=== PATIENT | female | born 1955 | race Caucasian/White ===

== ENCOUNTER 2017-03-12 08:16 | Emergency (ER) | payer OTHER ==
[~2017-03-12] VITALS: Ht 162.6 cm; Wt 69.0 kg
[2017-03-12 08:19] VITALS: Ht 162.6 cm; Wt 69.0 kg
[2017-03-12] MEDS ORDERED: CEPH-443 PO (08:34)
[2017-03-12] MEDS ORDERED: SULF1TAB31 PO (08:34)
--- NOTE | 2017-03-12 08:43 | ERD ---
ER Documentation Chief Complaint Date/Time DATE: 03/12/17 TIME: 08:40 Chief Complaint abcess on back x 2 weeks HPI 62-year-old female otherwise healthy comes emergency department with an abscess on the upper back for the past 2 years. Patient reports that she is achy pain is localized, and and she tried to drain it and got some return but it still is continuing to be fluctuant. She has not had any fevers or chills. ROS All systems reviewed and are negative except as per history of present illness. Medications Home Meds Active Scripts Sulfamethoxazole/Trimethoprim* (Bactrim Ds* Tablet) 1 Each Tablet, 1 TAB PO BID , #14 TAB Prov:LUCIANA GUTIERREZ PA-C 03/12/17 Cephalexin* (Keflex*) 500 Mg Capsule, 500 MG PO QID for 7 Days, CAP Prov:LUCIANA GUTIERREZ PA-C 03/12/17 Allergies Allergies: Coded Allergies: No Known Allergy (Unverified , 03/12/17) PMhx/Soc Hx Alcohol Use: No Hx Substance Use: No Hx Tobacco Use: No Smoking Status: Never smoker Physical Exam Vitals Vital Signs Date Time Temp Pulse Resp B/P Pulse Ox O2 Delivery O2 Flow Rate FiO2 03/12/17 08:19 97.8 62 18 129/70 99 Physical Exam General: Well-developed, well-nourished. The patient appears in no acute distress. HEENT: Head is normocephalic, atraumatic. No scleral icterus. Neck: Supple. Nontender. Lungs: Clear to auscultation. Normal air movement. Heart: Regular rate and rhythm. S1 and S2 are normal. No murmurs, gallops, or rubs. Abdomen: Nondistended. Extremities: No clubbing or cyanosis. Moving extremities x 4. No weakness. Neurologic: Alert and oriented 3. No focal deficits. Normal speech and gait. Skin: 3 cm area of fluctuance on the upper back, skin is otherwise dry and intact. There is no surrounding cellulitis or erythema. Results 24 hrs Current Medications Medications (Trade) Dose Ordered Sig/Tevin Route PRN Reason Start Time Stop Time Status Last Admin Dose Admin Lidocaine (Xylocaine 1% (Mdv) 20 ml) 20 ml ONCE ONCE SC 03/12/17 09:00 03/12/17 09:01 Procedures/MDM ED course: Abscess Incision and Drainage with irrigation by me: Patient was verbally consented Location: Upper back Anesthesia: Local 1% Lidocaine Technique: Irrigated. Disrupted loculations w/ instrumentation Complications: Neurovascularly intact post procedure 48 hour wound check. Scar minimization instructions given. Patient's skin symptoms have stabilized while they have been evaluated in the department and are appropriate for outpatient care and work up. Exam and w/u not consistent w/ sepsis, deep space infection, or foreign body. Medical decision making: This 62-year-old female presents with a chronic abscess on her back, there is fluctuance that required incision and drainage. The procedure was done without any complications. She will be sent home with Keflex and Bactrim and advised to do wound check in 2 days. There are no systemic signs of infection, deep space infection. Patient's blood pressure was elevated (>120/80) but appears stable without evidence of hypertension emergency or urgency. The patient was counseled about the risks of hypertension and urged to pursue outpatient monitoring and therapy within a week with their primary care physician. Departure Diagnosis: Primary Impression: Encounter for incision and drainage procedure Additional Impression: Abscess Condition: Good Patient Instructions: Abscess, Incision And Drainage Additional Instructions: WOUND CHECK:CONSULTE A DEMETRIS RIOS EN 2 villanueva para deric WILLSON HERIDA. LUCIANA GUTIERREZ PA-C Mar 12, 2017 08:42
[2017-03-12] MEDS ORDERED: LIDOCAINE 1% (MDV) 20 ML INJ SC ONE (09:00)
== END 2017-03-12 09:34 | disposition home or self-care (01) ==
LOC: FTE 08:16
DX: L02.212 Cutaneous abscess of back [any part, except buttock and flank] (principal)
CPT/HCPCS: 10060; Z7610